=== PATIENT | female | born 1965 ===

== ENCOUNTER 2016-08-26 14:50 | Emergency (ER) | payer MEDICAID ==
[2016-08-26 14:51] VITALS: BMI 19.3
[2016-08-26] MEDS ORDERED: Sodium Chloride 0.9% 1,000 ML IV ONE (15:29)
--- NOTE | 2016-08-26 15:29 | C.PDOC ---
History Of Present Illness 51 y/o female presents to the ED with complaints of headache, bilateral ear fullness and leg pain for 3 days. Patient also reports malaise, fatigue and SOB. Denies fever, cough, chest pain, dizziness, numbness, leg swelling or any other complaints. PMHx CABG 05/2016. Time Seen by Provider: 08/26/16 15:10 Chief Complaint (Nursing): Flu-like Symptoms History Per: Patient, Family History/Exam Limitations: no limitations Onset/Duration Of Symptoms: Days Current Symptoms Are (Timing): Still Present Location Of Pain: Headache Sick Contacts (Context): None Associated Symptoms: denies: Fever, Cough, Vomiting, Diarrhea Ear Symptoms: Bilateral: Ear Fullness Severity: Mild Recent travel outside of the [place]: No Past Medical History Reviewed: Historical Data, Nursing Documentation, Vital Signs Vital Signs: Last Vital Signs Temp 98.4 F 08/26/16 17:28 Pulse 84 08/26/16 17:28 Resp 18 08/26/16 17:28 BP 87/48 L 08/26/16 17:28 Pulse Ox 99 08/26/16 17:28 - Medical History PMH: CAD, HTN, Hypercholesterolemia Surgical History: CABG (X1 05/13/2016), Coronary Stent - [facility] Procedures MEASURE CARDIAC SAMPL & PRESSURE, BILATERAL, PERC (09/27/15) PLAIN RADIOGRAPHY OF R & L HEART USING L OSM CONTRAST (09/27/15) ULTRASONOGRAPHY OF RIGHT AND LEFT HEART, TRANSESOPHAGEAL (09/27/15) Family History: States: Unknown Family Hx - Social History Hx Alcohol Use: No Hx Substance Use: No - Immunization History Hx Tetanus Toxoid Vaccination: No Hx Influenza Vaccination: No Hx Pneumococcal Vaccination: No Review Of Systems Constitutional: Positive for: Weakness, Malaise. Negative for: Fever, Chills ENT: Positive for: Ear Pain (ear fullness) Cardiovascular: Negative for: Chest Pain, Palpitations Respiratory: Negative for: Cough Gastrointestinal: Negative for: Vomiting, Abdominal Pain, Diarrhea Musculoskeletal: Positive for: Leg Pain. Negative for: Back Pain Neurological: Positive for: Headache. Negative for: Weakness, Numbness, Dizziness Physical Exam - Physical Exam Appears: Non-toxic, No Acute Distress Skin: Warm, Dry, No Rash Head: Atraumatic, Normacephalic Eye(s): bilateral: Normal Inspection, EOMI Ear(s): Bilateral: TM Dull (no erythema) Nose: Normal Oral Mucosa: Moist Throat: Normal, No Erythema Neck: Normal ROM, Supple Chest: Symmetrical, Other (midsternal chest scar) Cardiovascular: Rhythm Regular (tachycardic), No Murmur Respiratory: Normal Breath Sounds, No Rales, No Rhonchi, No Wheezing Gastrointestinal/Abdominal: Soft, No Tenderness, No Distention, No Guarding Extremity: Normal ROM, Tenderness (diffuse non-focal tenderness to left lower leg), No Pedal Edema, No Calf Tenderness, No Swelling Pulses: Left Dorsalis Pedis: Normal, Right Dorsalis Pedis: Normal Neurological/Psych: Oriented x3, Normal Speech, Normal Motor, Normal Sensation ED Course And Treatment - Laboratory Results Result Diagrams: 08/26/16 16:20 08/26/16 16:20 ECG: Viewed By Me ECG Rhythm: Sinus Tachycardia Interpretation Of ECG: T wave abnormality (interpreted by Dr Cheatham) Rate From EC (BPM) O2 Sat by Pulse Oximetry: 98 (on room air) Pulse Ox Interpretation: Normal - Other Rad CXR X-Ray: Viewed By Me, Read By Radiologist (Fahad Rayo MD) Interpretation: Creator : Fahad Rayo MD. Report Date : 08/26/2016 16:05 :25. My Comment : . HISTORY: sob. COMPARISON: Comparison chest dated . TECHNIQUE: Chest PA and lateral. FINDINGS: LUNGS: There appears be some minor linear scarring changes in both lung bases. PLEURA: No significant pleural effusion identified. No pneumothorax apparent. CARDIOVASCULAR: Interval sternotomy and CABG surgery. OSSEOUS STRUCTURES: No significant abnormalities. VISUALIZED UPPER ABDOMEN: Normal. OTHER FINDINGS: None. IMPRESSION: Suspect minimal linear scarring changes both lung bases. Interval sternotomy and CABG surgery. . Medical Decision Making Medical Decision Making: Plan: * EKG, CXR * labs * UA * IV fluids Prior records reviewed and patient was recently seen 08/12/16 at [place] for chest pain and was admitted for 3 days Labs reviewed with no acute changes. UA shows UTI and Influenza A positive. Patient remained afebrile alert and oriented with stable vital signs during ER evaluation. Discussed results with patient, and she feels comfortable going home and will be discharged. Patient given follow up instructions. Instructed to return to ER if symptoms worsen or new symptoms arise. Disposition Counseled Patient/Family Regarding: Diagnosis, Need For Followup, Rx Given - Disposition Disposition: HOME/ ROUTINE Disposition Time: 17:11 Condition: IMPROVED Additional Instructions: Your labs show you have Flu A and Urine infection Take Tylenol or Motrin alternating every 4-6 hours for Fever 100.4F or higher. Take Tamiflu twice daily for 5 days and Macrobid twice daily for one week Rest and drink plenty of fluids. May use cool mist humidifier or vaporizer in room. 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 - Scribe Statement The provider has reviewed the documentation as recorded by the Scribe Roberto Connelly All medical record entries made by the Scribe were at my direction and personally dictated by me. I have reviewed the chart and agree that the record accurately reflects my personal performance of the history, physical exam, medical decision making, and the department course for this patient. I have also personally directed, reviewed, and agree with the discharge instructions and disposition.
--- NOTE | 2016-08-26 16:07 | RAD ---
HISTORY: sob COMPARISON: Comparison chest dated 09/27/2015 TECHNIQUE: Chest PA and lateral FINDINGS: LUNGS: There appears be some minor linear scarring changes in both lung bases. PLEURA: No significant pleural effusion identified. No pneumothorax apparent. CARDIOVASCULAR: Interval sternotomy and CABG surgery. OSSEOUS STRUCTURES: No significant abnormalities. VISUALIZED UPPER ABDOMEN: Normal. OTHER FINDINGS: None. IMPRESSION: Suspect minimal linear scarring changes both lung bases. Interval sternotomy and CABG surgery. .
[2016-08-26 16:30] LABS: BASO % 0.4 % (0.0-2.0); EOS % 0.3 % (0.0-4.0); LYMPH # 0.8 K/uL (1.0-4.3); LYMPH % 12.1 % (20.0-40.0); MEAN CORPUSCULAR HEMOGLOBIN 28.6 pg (27.0-31.0); MEAN PLATELET VOLUME 8.5 fL (7.2-11.7); MONO # 0.1 K/uL (0.0-0.8); MONO % 0.9 % (0.0-10.0); NRBC % 0.1 % (0.0-2.0); RED CELL DISTRIBUTION WIDTH 15.8 % (11.5-14.5); WHITE BLOOD COUNT 6.8 K/uL (4.8-10.8)
[2016-08-26 16:34] LABS: MEAN CELL VOLUME 86.6 fL (81.0-99.0)
[2016-08-26 16:38] LABS: CHLORIDE 91 mmol/L (98-107); POTASSIUM 3.8 mmol/L (3.6-5.2); SODIUM 130 mmol/L (132-148)
[2016-08-26 16:39] LABS: INR 1.2
[2016-08-26 16:40] LABS: AST/SGOT 147 U/L (14-36); BILIRUBIN,TOTAL 0.8 mg/dL (0.2-1.3); BLOOD UREA NITROGEN 16 mg/dL (7-17); CARBON DIOXIDE 23 mmol/L (22-30); GFR AFRICAN-AMERICAN > 60; TOTAL PROTEIN 8.1 g/dL (6.3-8.3)
[2016-08-26 16:41] LABS: ALKALINE PHOSPHATASE 74 U/L (38-126); ALT/SGPT 59 U/L (9-52); CALCIUM 8.7 mg/dl (8.6-10.4); GLUCOSE,RANDOM 110 mg/dL (65-105)
[2016-08-26 16:45] LABS: RBC URINE 3 /hpf (0-3); TRANSITIONAL EPITHIAL 1 /hpf (0-3); URINE BACTERIA OCC (<OCC); URINE BILIRUBIN NEGATIVE (NEGATIVE); URINE BLOOD NEGATIVE (NEGATIVE); URINE COLOR Amber (YELLOW); URINE GLUCOSE (UA) NORMAL (Normal); URINE KETONE TRACE mg/dL (NEGATIVE); URINE LEUKOCYTE ESTERASE 3+ Leu/uL (Negative); URINE PROTEIN 1+ mg/dL (NEGATIVE); URINE UROBILINOGEN NORMAL mg/dL (0.2-1.0); WBC URINE 21 /hpf (0-5)
[2016-08-26 17:30] VITALS: BP 87/48; PULSE 84; RESP 18; TEMP 98.4
[2016-08-26 19:00] VITALS: O2SAT 98
--- NOTE | 2016-08-28 15:03 | CARD ---
APPROVED REPORT EKG Measurement Heart [id number] <Conclusion> Sinus tachycardia T wave abnormality, consider anterolateral ischemia Abnormal ECG
== END 2016-08-26 17:40 | disposition home or self-care (01) ==
LOC: C.ER 14:50
DX: J11.1 Influenza due to unidentified influenza virus with other respiratory manifestations (principal); N39.0 Urinary tract infection, site not specified
CPT/HCPCS: 71020; 80053; 81001; 84484; 85025; 85610; 85730; 87804; 93005; 96360; 99284; J7040

== ENCOUNTER 2016-08-30 04:46 | Inpatient (IN) | payer MEDICAID ==
[2016-08-30 04:46] VITALS: BMI 19.3
[2016-08-30] MEDS ORDERED: Sodium Chloride 0.9% 1,000 ML IV ONE ×2 (05:16→07:46)
[2016-08-30 05:26] LABS: BASO % 0.1 % (0.0-2.0); EOS # 0.1 K/uL (0.0-0.7); EOS % 0.9 % (0.0-4.0); HEMATOCRIT 40.3 % (34.0-47.0); LYMPH # 1.2 K/uL (1.0-4.3); LYMPH % 9.3 % (20.0-40.0); MEAN CELL VOLUME 87.2 fL (81.0-99.0); MEAN CORPUSCULAR HEMOGLOBIN 28.7 pg (27.0-31.0); MEAN PLATELET VOLUME 10.6 fL (7.2-11.7); MONO # 0.2 K/uL (0.0-0.8); MONO % 1.7 % (0.0-10.0); PLATELET COUNT 111 K/uL (130-400); RED CELL DISTRIBUTION WIDTH 16.4 % (11.5-14.5); WHITE BLOOD COUNT 12.4 K/uL (4.8-10.8)
[2016-08-30] MEDS ORDERED: Sodium Chloride 0.9% 1,000 ML ONE (05:29)
[2016-08-30 05:38] LABS: POTASSIUM 4.3 mmol/L (3.6-5.2)
[2016-08-30 05:40] LABS: ALB/GLOB RATIO 0.8 (1.0-2.1); TOTAL PROTEIN 7.3 g/dL (6.3-8.3)
[2016-08-30 05:41] LABS: CALCIUM 8.4 mg/dl (8.6-10.4)
[2016-08-30 06:27] LABS: NEUTROPHIL 87 % (50-75); REACTIVE LYMPHOCYTES 3 % (0-0); TOTAL CELLS COUNTED 100
--- NOTE | 2016-08-30 06:27 | C.PDOC ---
History Of Present Illness 51 y/o female presents to ED with complaints of abdominal pain, diarrhea, and vomiting for 1 week. Patient states she saw her PMD yesterday who prescribed abx and Tamiflu, but patient notes that vomiting and diarrhea persisted. Patient also reports subjective fever and generalized weakness. Denies cough, URI symptoms, urinary symptoms, chest pain, SOB, or any other complaints. Time Seen by Provider: 08/30/16 05:09 Chief Complaint (Nursing): Abdominal Pain History Per: Patient History/Exam Limitations: no limitations Onset/Duration Of Symptoms: Days Current Symptoms Are (Timing): Still Present Location Of Pain/Discomfort: Diffuse Radiation Of Pain To:: None Quality Of Discomfort: "Pain" Associated Symptoms: Fever (subjective), Vomiting, Diarrhea. denies: Back Pain , Urinary Symptoms Recent travel outside of the [place]: No Past Medical History Reviewed: Historical Data, Nursing Documentation, Vital Signs Vital Signs: Last Vital Signs Temp 97.8 F 08/30/16 04:59 Pulse 82 08/30/16 04:59 Resp 18 08/30/16 04:59 BP 99/67 L 08/30/16 04:59 Pulse Ox 97 08/30/16 06:27 - Medical History PMH: CAD, HTN, Hypercholesterolemia Surgical History: CABG (X1 05/13/2016), Coronary Stent - [facility] Procedures MEASURE CARDIAC SAMPL & PRESSURE, BILATERAL, PERC (09/27/15) PLAIN RADIOGRAPHY OF R & L HEART USING L OSM CONTRAST (09/27/15) ULTRASONOGRAPHY OF RIGHT AND LEFT HEART, TRANSESOPHAGEAL (09/27/15) Family History: States: Unknown Family Hx - Social History Hx Alcohol Use: No Hx Substance Use: No - Immunization History Hx Tetanus Toxoid Vaccination: No Hx Influenza Vaccination: No Hx Pneumococcal Vaccination: No Review Of Systems Except As Marked, All Systems Reviewed And Found Negative. Constitutional: Positive for: Fever (subjective), Malaise. Negative for: Chills Cardiovascular: Negative for: Chest Pain Respiratory: Negative for: Cough, Shortness of Breath Gastrointestinal: Positive for: Vomiting, Abdominal Pain, Diarrhea Skin: Negative for: Rash Neurological: Negative for: Headache, Dizziness Physical Exam - Physical Exam Appears: Non-toxic, No Acute Distress Skin: Normal Color, Warm, Dry Head: Atraumatic, Normacephalic Oral Mucosa: Moist Chest: Symmetrical Cardiovascular: Rhythm Regular, No Murmur Respiratory: Normal Breath Sounds, No Rales, No Rhonchi, No Wheezing Gastrointestinal/Abdominal: Soft, Tenderness (periumbilical and epigastric tenderness), No Distention, No Guarding, No Rebound Back: No CVA Tenderness Extremity: Normal ROM, Capillary Refill (< 2 sec. ) Neurological/Psych: Oriented x3, Normal Speech, Normal Cognition ED Course And Treatment - Laboratory Results Result Diagrams: 08/30/16 05:23 08/30/16 05:23 O2 Sat by Pulse Oximetry: 97 (RA) Pulse Ox Interpretation: Normal Progress Note: Treated with Pepcid, Zofran, IVFs. Labs ordered and reviewed. Review of labs shows patient has elevated WBC's. Abdominal CT ordered. 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 - Scribe Statement The provider has reviewed the documentation as recorded by the Erick Wang Provider Scribe Attestation: All medical record entries made by the Inocenteibjulian were at my direction and personally dictated by me. I have reviewed the chart and agree that the record accurately reflects my personal performance of the history, physical exam, medical decision making, and the department course for this patient. I have also personally directed, reviewed, and agree with the discharge instructions and disposition. Physician Patient Turnover Patient Signed Over To: Lydia Leong Handoff Comments: Pending Abd/ Pelvis CT results
[2016-08-30] MEDS ORDERED: Iohexol 240 (50 ml) ONE (06:39)
[2016-08-30] MEDS ORDERED: Iohexol 240 (50 ml) PO ONE (06:49)
[2016-08-30 07:19] LABS: RBC URINE 12 /hpf (0-3); URINE BACTERIA RARE (<OCC); URINE BILIRUBIN NEGATIVE (NEGATIVE); URINE BLOOD 1+ (NEGATIVE); URINE COLOR Amber (YELLOW); URINE GLUCOSE (UA) NORMAL (Normal); URINE KETONE NEGATIVE (NEGATIVE); URINE LEUKOCYTE ESTERASE 3+ Leu/uL (Negative); URINE PROTEIN 1+ mg/dL (NEGATIVE); URINE UROBILINOGEN NORMAL mg/dL (0.2-1.0); WBC URINE 49 /hpf (0-5)
--- NOTE | 2016-08-30 10:27 | CT ---
PROCEDURE: CT Abdomen and Pelvis with Oral contrast. HISTORY: diffuse abd pain COMPARISON: None. TECHNIQUE: Contiguous axial images of the abdomen and pelvis. Oral contrast was administered. No IV contrast given. Coronal and Sagittal reformats generated. Radiation dose: Total exam DLP = 348.53 mGy-cm. FINDINGS: LOWER THORAX: There is focal opacity at the right lung base in new compared to the previous CT of the chest dated 09/28/2019 16 May represent atelectasis or pneumonia. The possibility of neoplasm is less likely but not totally excluded. Questionable trace right pleural effusion or trace pleural thickening. LIVER: Mild hepatomegaly without evidence of hepatic steatosis. GALLBLADDER AND BILE DUCTS: Suspicious for small gallstones and/or gallbladder sludge without evidence of acute cholecystitis. The biliary tree is not dilated. PANCREAS: No CT evidence of pancreatitis. The main pancreatic duct is not dilated. SPLEEN: Unremarkable. No splenomegaly. ADRENALS: Unremarkable. KIDNEYS AND URETERS: Unremarkable. No stone or hydronephrosis. BLADDER: Grossly unremarkable. REPRODUCTIVE: Unremarkable. APPENDIX: There is no evidence of appendicitis. BOWEL: There is mild diffuse small bowel dilatation wall thickening seen specially at the mid and upper left abdomen. Mild wall thickening versus incomplete distention of the sigmoid and rectum. No evidence of bowel obstruction. PERITONEUM: Unremarkable. No fluid collection. No free air. LYMPH NODES: Mildly enlarged mesenteric and retroperitoneal lymph nodes are seen. VASCULATURE: Unremarkable. No aortic aneurysm. BONES: No fracture or destructive lesion. Severe degenerative changes at L5-S1. OTHER FINDINGS: None. IMPRESSION: Mild small bowel wall thickening seen in the mid abdomen suspicious for enteritis. Mild wall thickening versus incomplete distention of the sigmoid and rectal wall. The possibility of colitis is not excluded. Suspicious for small gallstones and sludge without evidence of acute cholecystitis. No evidence of pancreatitis or appendicitis. Focal airspace consolidation at the right lung base ,new compared to the previous CT of the chest may represent atelectasis, pneumonia or less likely neoplasm. If clinically warranted 3 months follow-up reassessment of the chest is suggested. Small hiatus hernia. Mildly enlarged mesenteric and retroperitoneal lymph nodes.
[2016-08-30] MEDS ORDERED: Piperacillin/Tazobact 3.375 gm 100 ML IV STA (11:24)
[2016-08-30] MEDS ORDERED: Piperacillin/Tazobact 3.375 gm 100 ML IVPB ONE (12:15)
--- NOTE | 2016-08-30 17:03 | CP.PCM.HP ---
History of Present Illness - History of Present Illness History of Present Illness: 51 years old female patient with past medical history of hypertension hyperlipidemia and CAD post CABG in 2016, patient no presented with complaint of abdominal pain, fever, generalized weakness vomiting diarrhea since last 1 week, patient consulted with PMD and started on antibiotics and Tamiflu still diarrhea and vomiting persisted. No complaint of chest pain, shortness of breath, cough, palpitation. Present on Admission - Present on Admission Any Indicators Present on Admission: No Past Patient History - Past Medical History & Family History Past Medical History?: Yes - Past Social History Smoking Status: Heavy Smoker > 10 Cigarettes Daily - CARDIAC Hx Hypercholesterolemia: Yes Hx Hypertension: Yes - PULMONARY Hx Respiratory Disorders: No - NEUROLOGICAL Hx Neurological Disorder: No - HEENT Hx HEENT Problems: No - RENAL Hx Chronic Kidney Disease: No - ENDOCRINE/METABOLIC Hx Endocrine Disorders: No - HEMATOLOGICAL/ONCOLOGICAL Hx Blood Disorders: No - INTEGUMENTARY Hx Dermatological Problems: No - MUSCULOSKELETAL/RHEUMATOLOGICAL Hx Musculoskeletal Disorders: No Hx Falls: No - GASTROINTESTINAL Hx Gastrointestinal Disorders: Yes Hx Gastroesophageal Reflux: Yes Other/Comment: gastric reflux - GENITOURINARY/GYNECOLOGICAL Hx Genitourinary Disorders: No - PSYCHIATRIC Hx Substance Use: No - SURGICAL HISTORY Hx Coronary Artery Bypass Graft: Yes (X1 05/13/2016) Hx Coronary Stent: Yes - ANESTHESIA Hx Anesthesia: Yes Hx Anesthesia Reactions: No Hx Malignant Hyperthermia: No Meds Allergies/Adverse Reactions: Allergies Allergy/AdvReac Type Severity Reaction Status Date / Time ciprofloxacin [From Cipro] Allergy RASH Verified 09/12/16 12:25 ciprofloxacin HCl Allergy RASH Verified 09/12/16 12:25 [From Cipro] iodine Allergy SWELLING Verified 09/12/16 12:25 Physical Exam - Constitutional Appears: Well - Head Exam Head Exam: ATRAUMATIC, NORMAL INSPECTION, NORMOCEPHALIC - Eye Exam Eye Exam: EOMI, Normal appearance, PERRL Pupil Exam: NORMAL ACCOMODATION, PERRL - ENT Exam ENT Exam: Mucous Membranes Moist, Normal Exam - Neck Exam Neck exam: Positive for: Normal Inspection - Respiratory Exam Respiratory Exam: Decreased Breath Sounds - Cardiovascular Exam Cardiovascular Exam: REGULAR RHYTHM, +S1, +S2 - GI/Abdominal Exam GI & Abdominal Exam: Diminished Bowel Sounds, Hyperactive Bowel Sounds, Soft - Rectal Exam Rectal Exam: Deferred Results - Vital Signs Recent Vital Signs: Last Vital Signs Temp 100.2 F H 08/30/16 16:05 Pulse 135 H 08/30/16 16:05 Resp 20 08/30/16 16:05 BP 116/71 08/30/16 16:05 Pulse Ox 98 08/30/16 16:05 - Labs Result Diagrams: 09/03/16 13:56 09/04/16 07:30 Assessment & Plan (1) Abdominal pain Status: Acute (2) Acute chest pain Status: Acute (3) Chest pain Status: Acute (4) Hyperlipidemia Status: Acute (5) Hypertension Status: Acute (6) Influenza Status: Acute (7) Neuropathy Status: Acute (8) UTI (urinary tract infection) Status: Acute (9) Vasculitis Status: Acute (10) Anxiety Status: Chronic - Assessment and Plan (Free Text) Plan: cefepime protonix lovenox flagyl gi consult stool workup ivf as needed encourage po feeding conit as ordered
[2016-08-30] MEDS ORDERED: Apap-Butalbital-Caffeine 325-50-40mg Tab PO PRN (18:05)
[2016-08-30] MEDS ORDERED: Moxifloxacin IV 400mg/250ml NS 250 ML IVPB SCH (18:15)
[2016-08-30] MEDS: Moxifloxacin IV 400mg/250ml NS 250 ML IVPB SCH (20:15)
[2016-08-30] MEDS: metroNIDAZOLE IV 500 mg/100 ml 100 ML IVPB SCH (21:43)
[2016-08-31] MEDS: metroNIDAZOLE IV 500 mg/100 ml 100 ML IVPB SCH ×3 (05:55→22:03)
--- NOTE | 2016-08-31 09:14 | CP.PCM.CON ---
<Gill Coker - Last Filed: 08/31/16 10:21> History of Present Illness - History of Present Illness History of Present Illness: Gastroenterology Fellow/PGY4 Consult Note 51 year old female with history of Hypertension, Hyperlipidemia, sCHF EF 35-40% with grade I diastolic dysfunction, CAD 09/2015 with medical management s/p CABG 05/2016 on Aspirin/Plavix presenting with diarrhea and vomiting. recent ER visit 08/26 for weakness and completion of Tamiflu for Influenza A and Nitrofurantoin for UTI. Patient notes persistent weakness, body aches, chills, and loss of appetite. She notes constant epigastric pain described as a pressure -like sensation worse with movement and palpation, pain scale 8/10. She notes diarrhea and bilious vomiting with solid and liquid intake since ER presentation on 08/26. Notes sick contacts with grandchildren two days ago but she already had her symptoms. She denies weight loss, nausea, indigestion, heartburn, acid reflux, bloating, melena, hematochezia, hematemesis, or constipation. EGD endorsed to have Gastritis two years ago. No prior colonoscopy. Hiurnf-Oqoeve-[id number] cancer diagnosed at 54 years of age Social-denies tobacco, alcohol, illicit drug use Surgery-none Review of Systems - Review of Systems Review of Systems: A 12-point review of systems negative except for as above Past Patient History - Past Medical History & Family History Past Medical History?: Yes - Past Social History Smoking Status: Heavy Smoker > 10 Cigarettes Daily - CARDIAC Hx Hypercholesterolemia: Yes Hx Hypertension: Yes - PULMONARY Hx Respiratory Disorders: No - NEUROLOGICAL Hx Neurological Disorder: No - HEENT Hx HEENT Problems: No - RENAL Hx Chronic Kidney Disease: No - ENDOCRINE/METABOLIC Hx Endocrine Disorders: No - HEMATOLOGICAL/ONCOLOGICAL Hx Blood Disorders: No - INTEGUMENTARY Hx Dermatological Problems: No - MUSCULOSKELETAL/RHEUMATOLOGICAL Hx Musculoskeletal Disorders: No Hx Falls: No - GASTROINTESTINAL Hx Gastrointestinal Disorders: Yes Hx Gastroesophageal Reflux: Yes Other/Comment: gastric reflux - GENITOURINARY/GYNECOLOGICAL Hx Genitourinary Disorders: No - PSYCHIATRIC Hx Substance Use: No - SURGICAL HISTORY Hx Coronary Artery Bypass Graft: Yes (X1 05/13/2016) Hx Coronary Stent: Yes - ANESTHESIA Hx Anesthesia: Yes Hx Anesthesia Reactions: No Hx Malignant Hyperthermia: No Meds Allergies/Adverse Reactions: Allergies Allergy/AdvReac Type Severity Reaction Status Date / Time ciprofloxacin [From Cipro] Allergy RASH Verified 08/30/16 05:08 ciprofloxacin HCl Allergy RASH Verified 08/30/16 05:08 [From Cipro] iodine Allergy SWELLING Verified 08/30/16 05:08 - Medications Medications: Current Medications Acetaminophen/Butalbital/Caffeine (Fioricet) 1 tab PO Q4H PRN PRN Reason: severe headache Stop: 09/04/16 18:06 Aspirin (Aspirin Chewable) 81 mg PO DAILY [facility] Carvedilol (Coreg) 3.125 mg PO BID [facility] Clopidogrel Bisulfate (Plavix) 75 mg PO DAILY [facility] Metronidazole (Flagyl) 100 mls @ 100 mls/hr IVPB Q8 [facility] Last Admin: 08/31/16 05:55 Dose: 100 mls/hr Cefepime HCl 1 gm/ Dextrose 50 mls @ 100 mls/hr IVPB Q12H [facility] Last Admin: 08/31/16 06:43 Dose: 100 mls/hr Moxifloxacin HCl (Avelox Iv 400mg/250ml Ns) 250 mls @ 167 mls/hr IVPB Q24H [facility] Last Admin: 08/30/16 20:15 Dose: 167 mls/hr Pantoprazole Sodium (Protonix Ec Tab) 40 mg PO DAILY [facility] Rosuvastatin Calcium (Crestor) 10 mg PO HS [facility] Last Admin: 08/30/16 21:43 Dose: 10 mg Physical Exam - Constitutional Appears: Non-toxic, No Acute Distress - Head Exam Head Exam: ATRAUMATIC, NORMOCEPHALIC - Eye Exam Eye Exam: EOMI, PERRL Pupil Exam: PERRL. absent: Miosis, Mydriatic - ENT Exam ENT Exam: Mucous Membranes Moist, Normal Oropharynx - Neck Exam Neck exam: Positive for: Full Rom, Normal Inspection - Respiratory Exam Respiratory Exam: Clear to Auscultation Bilateral. absent: Rales, Rhonchi, Wheezes - Cardiovascular Exam Cardiovascular Exam: RRR, +S1, +S2. absent: Gallop, Rubs - GI/Abdominal Exam GI & Abdominal Exam: Normal Bowel Sounds, Soft, Tenderness. absent: Distended, Guarding, Organomegaly, Rebound, Rigid Additional comments: epigastric and LUQ tenderness to palpation - Extremities Exam Extremities exam: Positive for: full ROM. Negative for: pedal edema - Neurological Exam Neurological exam: Alert - Psychiatric Exam Psychiatric exam: Normal Affect, Normal Mood - Skin Skin Exam: Dry, Intact, Normal Color, Warm Results - Vital Signs Recent Vital Signs: Last Vital Signs Temp 98.6 F 08/31/16 07:00 Pulse 109 H 08/31/16 07:00 Resp 18 08/31/16 07:00 BP 99/58 L 08/31/16 07:00 Pulse Ox 96 08/31/16 07:00 - Labs Result Diagrams: 08/30/16 05:23 08/30/16 05:23 Assessment & Plan - Assessment and Plan (Free Text) Assessment: 51 year old female with history of Hypertension, Hyperlipidemia, sCHF EF 35-40% with grade I diastolic dysfunction, CAD 09/2015 with medical management s/p CABG 05/2016 on Aspirin/Plavix presenting with diarrhea and vomiting. Recent antibiotics for Influenza A and UTI 08/26/16. Active treatment of UTI, renal insufficiency, enteritis on CT A/P and concern for Right lower lung opacity in setting of recent Influenza A treatment. EGD endorsed to have Gastritis two years ago. No prior colonoscopy. Plan: >obtain Cdiff, stool culture, fecal leukocytes >continue cefepime and Flagyl >pending Blood, urine, sputum cultures >supportive care: PPI, IVFs, pain control, antiemetics >clear liquid diet, advance as tolerated >further recommendations based on clinical course <Carlos Jones - Last Filed: 08/31/16 12:12> Meds - Medications Medications: Current Medications Acetaminophen/Butalbital/Caffeine (Fioricet) 1 tab PO Q4H PRN PRN Reason: severe headache Stop: 09/04/16 18:06 Aspirin (Aspirin Chewable) 81 mg PO DAILY [facility] Last Admin: 08/31/16 10:34 Dose: 81 mg Carvedilol (Coreg) 3.125 mg PO BID [facility] Last Admin: 08/31/16 10:34 Dose: Not Given Clopidogrel Bisulfate (Plavix) 75 mg PO DAILY [facility] Last Admin: 08/31/16 10:34 Dose: 75 mg Metronidazole (Flagyl) 100 mls @ 100 mls/hr IVPB Q8 [facility] Last Admin: 08/31/16 05:55 Dose: 100 mls/hr Moxifloxacin HCl (Avelox Iv 400mg/250ml Ns) 250 mls @ 167 mls/hr IVPB Q24H [facility] Last Admin: 08/30/16 20:15 Dose: 167 mls/hr Dextrose/Sodium Chloride (Dextrose 5%/0.45% Ns 1000 Ml) 1,000 mls @ 40 mls/hr IV .Q24H [facility] Last Admin: 08/31/16 11:04 Dose: 40 mls/hr Cefepime HCl 1 gm/ Sodium (Chloride) 100 mls @ 200 mls/hr IVPB Q12H [facility] Pantoprazole Sodium (Protonix Ec Tab) 40 mg PO DAILY [facility] Last Admin: 08/31/16 10:34 Dose: 40 mg Rosuvastatin Calcium (Crestor) 10 mg PO HS [facility] Last Admin: 08/30/16 21:43 Dose: 10 mg Results - Vital Signs Recent Vital Signs: Last Vital Signs Temp 98.6 F 08/31/16 07:00 Pulse 109 H 08/31/16 07:00 Resp 18 08/31/16 07:00 BP 99/58 L 08/31/16 07:00 Pulse Ox 96 08/31/16 07:00 - Labs Result Diagrams: 08/30/16 05:23 08/31/16 11:31 Labs: Laboratory Results - last 24 hr 08/31/16 11:31 Sodium 128 L Potassium 3.7 Chloride 98 Carbon Dioxide 21 L Anion Gap 13 BUN 17 Creatinine 0.8 Est GFR ( Amer) > 60 Est GFR (Non-Af Amer) > 60 Random Glucose 90 Calcium 7.3 L Total Bilirubin 0.7 AST 457 H D ALT 90 H D Alkaline Phosphatase 68 Total Protein 6.0 L Albumin 2.5 L D Globulin 3.5 Albumin/Globulin Ratio 0.7 L Attending/Attestation - Attestation I have personally seen and examined this patient.: Yes I have fully participated in the care of the patient.: Yes I have reviewed all pertinent clinical information: Yes Notes (Text): 08/31/16 12:03 I have seen and examined patient with GI fellow. Agree with above documentation with the following additions. In brief, this is a 51 year old female with history of HTN, hyperlipidemia, CAD/CABG on plavix, CHF who presents to hospital with complaint of vomiting and diarrhea. Her symptoms began 5 days ago, prior to this she was being treated for the flu. She describes 2-3 episodes of loose watery, non-bloody diarrhea along with non- bloody emesis. She also endorses generalized 8/10 intensity abdominal pain which is non-radiating and worse with meal consumption. She denies travel, she does note that her grandchildren were sick a few days prior however her symptoms had already started. She otherwise denies fever/chills, weight loss, rectal bleeding. She had an EGD 2 years ago which showed gastritis as per patient, no prior colonoscopy. HTN / hyperlipidemia CAD/CABG, CHF Abdominal pain, nausea, vomiting, diarrhea UTI CT imaging reviewed by me showing cholelithiasis/GB sludge, mesenteric/ retroperitoneal adenopathy, mild focal wall thickening in mid small bowel, sigmoid, rectum - Liquid diet as tolerated - Obtain stool studies - Continue with antibiotic therapy, obtain urine culture. Follow up blood cultures. - Symptoms suggestive of gastroenteritis, continue with supportive management for time being - Patient would benefit from elective outpatient age appropriate screening colonoscopy 6-8 weeks following resolution of colitis
[2016-08-31] MEDS ORDERED: Enoxaparin 40 mg Syringe SC SCH (10:00)
--- NOTE | 2016-08-31 10:29 | CP.PCM.PN ---
Subjective - Date & Time of Evaluation Date of Evaluation: 08/31/16 Time of Evaluation: 10:40 - Subjective Subjective: clinically same Objective - Vital Signs/Intake and Output Vital Signs (last 24 hours): Temp Pulse Resp BP Pulse Ox 98.6 F 109 H 18 99/58 L 96 08/31/16 07:00 08/31/16 07:00 08/31/16 07:00 08/31/16 07:00 08/31/16 07:00 Intake and Output: 08/31/16 08/31/16 06:59 18:59 Intake Total 590 Balance 590 - Medications Medications: Current Medications Acetaminophen/Butalbital/Caffeine (Fioricet) 1 tab PO Q4H PRN PRN Reason: severe headache Stop: 09/04/16 18:06 Aspirin (Aspirin Chewable) 81 mg PO DAILY [facility] Carvedilol (Coreg) 3.125 mg PO BID [facility] Clopidogrel Bisulfate (Plavix) 75 mg PO DAILY [facility] Metronidazole (Flagyl) 100 mls @ 100 mls/hr IVPB Q8 [facility] Last Admin: 08/31/16 05:55 Dose: 100 mls/hr Cefepime HCl 1 gm/ Dextrose 50 mls @ 100 mls/hr IVPB Q12H [facility] Last Admin: 08/31/16 06:43 Dose: 100 mls/hr Moxifloxacin HCl (Avelox Iv 400mg/250ml Ns) 250 mls @ 167 mls/hr IVPB Q24H [facility] Last Admin: 08/30/16 20:15 Dose: 167 mls/hr Dextrose/Sodium Chloride (Dextrose 5%/0.45% Ns 1000 Ml) 1,000 mls @ 40 mls/hr IV .Q24H [facility] Pantoprazole Sodium (Protonix Ec Tab) 40 mg PO DAILY [facility] Rosuvastatin Calcium (Crestor) 10 mg PO HS [facility] Last Admin: 08/30/16 21:43 Dose: 10 mg - Constitutional Appears: Well - Head Exam Head Exam: ATRAUMATIC, NORMAL INSPECTION, NORMOCEPHALIC - Eye Exam Eye Exam: EOMI, Normal appearance, PERRL Pupil Exam: NORMAL ACCOMODATION, PERRL - ENT Exam ENT Exam: Mucous Membranes Moist, Normal Exam - Neck Exam Neck Exam: Full ROM, Normal Inspection. absent: Lymphadenopathy - Respiratory Exam Respiratory Exam: Decreased Breath Sounds - Cardiovascular Exam Cardiovascular Exam: REGULAR RHYTHM, +S1, +S2 - GI/Abdominal Exam GI & Abdominal Exam: Soft, Diminished Bowel Sounds - Rectal Exam Rectal Exam: Deferred Assessment and Plan (1) Abdominal pain Status: Acute (2) Acute chest pain Status: Acute (3) Chest pain Status: Acute (4) Hyperlipidemia Status: Acute (5) Hypertension Status: Acute (6) Influenza Status: Acute (7) Neuropathy Status: Acute (8) UTI (urinary tract infection) Status: Acute (9) Vasculitis Status: Acute (10) Anxiety Status: Chronic - Assessment and Plan (Free Text) Plan: GI consult continue aspirin Coreg Plavix Continue cefepime, Flagyl IV fluids Diet as tolerated Pain meds
[2016-08-31] MEDS: Pantoprazole 40 mg EC Tab PO SCH (10:34)
[2016-08-31] MEDS: Dextrose 5%/0.45% NS 1,000 ML IV SCH (11:04)
[2016-08-31 11:43] LABS: EOS # 0.1 K/uL (0.0-0.7); MONO # 0.2 K/uL (0.0-0.8); WHITE BLOOD COUNT 9.6 K/uL (4.8-10.8)
[2016-08-31 11:52] LABS: BASO % 0.1 % (0.0-2.0); CHLORIDE 98 mmol/L (98-107); EOS % 0.9 % (0.0-4.0); HEMATOCRIT 30.9 % (34.0-47.0); LYMPH % 10.2 % (20.0-40.0); MEAN CORPUSCULAR HEMOGLOBIN 28.6 pg (27.0-31.0); MONO % 2.5 % (0.0-10.0); RED CELL DISTRIBUTION WIDTH 16.3 % (11.5-14.5)
[2016-08-31 11:53] LABS: SODIUM 128 mmol/L (132-148)
[2016-08-31 11:54] LABS: POTASSIUM 3.7 mmol/L (3.6-5.2)
[2016-08-31 11:56] LABS: ALB/GLOB RATIO 0.7 (1.0-2.1); ALKALINE PHOSPHATASE 68 U/L (38-126); ALT/SGPT 90 U/L (9-52); AST/SGOT 457 U/L (14-36); BILIRUBIN,TOTAL 0.7 mg/dL (0.2-1.3); BLOOD UREA NITROGEN 17 mg/dL (7-17); CARBON DIOXIDE 21 mmol/L (22-30); GFR AFRICAN-AMERICAN > 60; GLUCOSE,RANDOM 90 mg/dL (65-105)
[2016-08-31 11:57] LABS: CALCIUM 7.3 mg/dl (8.6-10.4)
[2016-08-31 12:05] LABS: MEAN CELL VOLUME 84.1 fL (81.0-99.0)
[2016-08-31] MEDS: Cefepime 1 GM in Sodium Chloride 0.9% 100 ML IVPB SCH (18:16)
[2016-08-31] MEDS: Moxifloxacin IV 400mg/250ml NS 250 ML IVPB SCH (20:00)
[2016-09-01] MEDS: Cefepime 1 GM in Sodium Chloride 0.9% 100 ML IVPB SCH (05:16)
[2016-09-01] MEDS: metroNIDAZOLE IV 500 mg/100 ml 100 ML IVPB SCH ×3 (05:16→21:25)
--- NOTE | 2016-09-01 08:04 | CP.PCM.PN ---
<John PaulGill - Last Filed: 09/01/16 08:54> Subjective - Date & Time of Evaluation Date of Evaluation: 08/25/16 Time of Evaluation: 08:03 - Subjective Subjective: Gastroenterology Fellow/PGY4 Progress Note Patient notes unchanged epigastric pain, pain scale 8/10. Five episodes of diarrhea with improving frequency from initial presentation. Resolved vomiting. A 12-point review of systems negative except for as above. Objective - Vital Signs/Intake and Output Vital Signs (last 24 hours): Temp Pulse Resp BP Pulse Ox 98 F 94 H 20 91/53 L 97 09/01/16 00:00 09/01/16 00:00 09/01/16 00:00 09/01/16 00:00 09/01/16 00:00 - Medications Medications: Current Medications Acetaminophen/Butalbital/Caffeine (Fioricet) 1 tab PO Q4H PRN PRN Reason: severe headache Stop: 09/04/16 18:06 Aspirin (Aspirin Chewable) 81 mg PO DAILY [facility] Last Admin: 08/31/16 10:34 Dose: 81 mg Carvedilol (Coreg) 3.125 mg PO BID [facility] Last Admin: 08/31/16 18:16 Dose: Not Given Clopidogrel Bisulfate (Plavix) 75 mg PO DAILY [facility] Last Admin: 08/31/16 10:34 Dose: 75 mg Metronidazole (Flagyl) 100 mls @ 100 mls/hr IVPB Q8 [facility] Last Admin: 09/01/16 05:16 Dose: 100 mls/hr Moxifloxacin HCl (Avelox Iv 400mg/250ml Ns) 250 mls @ 167 mls/hr IVPB Q24H [facility] Last Admin: 08/31/16 20:00 Dose: 167 mls/hr Dextrose/Sodium Chloride (Dextrose 5%/0.45% Ns 1000 Ml) 1,000 mls @ 40 mls/hr IV .Q24H [facility] Last Admin: 08/31/16 11:04 Dose: 40 mls/hr Cefepime HCl 1 gm/ Sodium (Chloride) 100 mls @ 200 mls/hr IVPB Q12H [facility] Last Admin: 09/01/16 05:16 Dose: 200 mls/hr Pantoprazole Sodium (Protonix Ec Tab) 40 mg PO DAILY [facility] Last Admin: 08/31/16 10:34 Dose: 40 mg Rosuvastatin Calcium (Crestor) 10 mg PO HS [facility] Last Admin: 08/31/16 22:04 Dose: 10 mg - Constitutional Appears: Non-toxic, No Acute Distress - Head Exam Head Exam: ATRAUMATIC, NORMOCEPHALIC - Eye Exam Eye Exam: EOMI, PERRL Pupil Exam: PERRL. absent: Miosis, Mydriatic - ENT Exam ENT Exam: Mucous Membranes Moist, Normal Oropharynx - Neck Exam Neck Exam: Full ROM, Normal Inspection - Respiratory Exam Respiratory Exam: Clear to Ausculation Bilateral. absent: Rales, Rhonchi, Wheezes - Cardiovascular Exam Cardiovascular Exam: RRR, +S1, +S2. absent: Gallop, Rubs - GI/Abdominal Exam GI & Abdominal Exam: Soft, Tenderness, Normal Bowel Sounds. absent: Distended, Firm, Guarding, Rigid, Mass, Organomegaly Additional comments: epigastric tenderness to palpation - Extremities Exam Extremities Exam: Full ROM. absent: Pedal Edema - Neurological Exam Neurological Exam: Alert, Awake - Psychiatric Exam Psychiatric exam: Normal Affect, Normal Mood - Skin Skin Exam: Dry, Intact, Normal Color, Warm Assessment and Plan - Assessment and Plan (Free Text) Assessment: 51 year old female with history of Hypertension, Hyperlipidemia, sCHF EF 35-40% with grade I diastolic dysfunction, CAD 09/2015 with medical management s/p CABG 05/2016 on Aspirin/Plavix presenting with diarrhea and vomiting. Recent antibiotics for Influenza A and UTI 08/26/16. Active treatment of UTI, renal insufficiency, enteritis on CT A/P and concern for Right lower lung opacity in setting of recent Influenza A treatment. EGD endorsed to have Gastritis two years ago. No prior colonoscopy. Plan: >negative Cdiff, fecal leukocytes >blood culture negative at 24 hours >pending stool culture >on cefepime, moxifloxacin, flagyl >pending urine and sputum cultures >supportive care: PPI, IVFs, pain control, antiemetics >advanced to full liquid diet, advance as tolerated >further recommendations based on clinical course >will benefit from colonoscopy in 6 to 8 weeks after improved colitis <Sol Harman - Last Filed: 09/01/16 11:58> Objective - Vital Signs/Intake and Output Vital Signs (last 24 hours): Temp Pulse Resp BP Pulse Ox 97.4 F L 69 18 93/49 L 96 09/01/16 07:00 09/01/16 07:00 09/01/16 07:00 09/01/16 07:00 09/01/16 07:00 - Medications Medications: Current Medications Acetaminophen/Butalbital/Caffeine (Fioricet) 1 tab PO Q4H PRN PRN Reason: severe headache Stop: 09/04/16 18:06 Aspirin (Aspirin Chewable) 81 mg PO DAILY [facility] Last Admin: 09/01/16 11:10 Dose: 81 mg Carvedilol (Coreg) 3.125 mg PO BID [facility] Last Admin: 09/01/16 11:11 Dose: Not Given Clopidogrel Bisulfate (Plavix) 75 mg PO DAILY [facility] Last Admin: 09/01/16 11:10 Dose: 75 mg Metronidazole (Flagyl) 100 mls @ 100 mls/hr IVPB Q8 [facility] Last Admin: 09/01/16 05:16 Dose: 100 mls/hr Moxifloxacin HCl (Avelox Iv 400mg/250ml Ns) 250 mls @ 167 mls/hr IVPB Q24H [facility] Last Admin: 08/31/16 20:00 Dose: 167 mls/hr Dextrose/Sodium Chloride (Dextrose 5%/0.45% Ns 1000 Ml) 1,000 mls @ 40 mls/hr IV .Q24H [facility] Last Admin: 09/01/16 11:11 Dose: Not Given Cefepime HCl 1 gm/ Sodium (Chloride) 100 mls @ 200 mls/hr IVPB Q12H [facility] Last Admin: 09/01/16 05:16 Dose: 200 mls/hr Pantoprazole Sodium (Protonix Ec Tab) 40 mg PO DAILY [facility] Last Admin: 09/01/16 11:10 Dose: 40 mg Rosuvastatin Calcium (Crestor) 10 mg PO HS [facility] Last Admin: 08/31/16 22:04 Dose: 10 mg - Labs Labs: 09/01/16 08:06 09/01/16 08:06 Attending/Attestation - Attestation I have personally seen and examined this patient.: Yes I have fully participated in the care of the patient.: Yes I have reviewed all pertinent clinical information, including history, physical exam and plan: Yes Notes (Text): Patient seen and examined. Agree with note as documented above with the following additions/exceptions. This is a 51 year old female with history of HTN, HL, CAD s/p CABG 05/2016 on ASA/plavix who presents with complaint of abdominal pain, enteritis on CT. Stool studies thusfar negative. Her diarrhea is improved today, but she still complains of abdominal pain. Her LFTs are increasing (transaminitis), ?drug induced. Would follow up stool studies. Obtain abdominal ultrasound. Monitor LFTs. Continue supportive care with PPI, IVF hydration and antiemetic therapy as needed. Continue liquid diet as tolerated. She would ultimately benefit from colonoscopy after resolution of acute symptoms. 09/01/16 11:53
[2016-09-01 08:15] LABS: BASO % 0.2 % (0.0-2.0); EOS # 0.2 K/uL (0.0-0.7); EOS % 4.5 % (0.0-4.0); HEMATOCRIT 31.2 % (34.0-47.0); LYMPH % 22.8 % (20.0-40.0); MEAN CELL VOLUME 85.4 fL (81.0-99.0); MEAN CORPUSCULAR HEMOGLOBIN 28.2 pg (27.0-31.0); MEAN PLATELET VOLUME 9.8 fL (7.2-11.7); MONO # 0.2 K/uL (0.0-0.8); MONO % 5.1 % (0.0-10.0); NRBC % 0.1 % (0.0-2.0); RED CELL DISTRIBUTION WIDTH 16.2 % (11.5-14.5)
[2016-09-01 08:23] LABS: WHITE BLOOD COUNT 4.6 K/uL (4.8-10.8)
[2016-09-01 08:25] LABS: CHLORIDE 100 mmol/L (98-107); POTASSIUM 3.3 mmol/L (3.6-5.2); SODIUM 134 mmol/L (132-148)
[2016-09-01 08:27] LABS: GFR AFRICAN-AMERICAN > 60
[2016-09-01 08:28] LABS: ALB/GLOB RATIO 0.8 (1.0-2.1); ALKALINE PHOSPHATASE 65 U/L (38-126); ALT/SGPT 92 U/L (9-52); AST/SGOT 556 U/L (14-36); BILIRUBIN,TOTAL 0.5 mg/dL (0.2-1.3); BLOOD UREA NITROGEN 13 mg/dL (7-17); CALCIUM 7.5 mg/dl (8.6-10.4); CARBON DIOXIDE 24 mmol/L (22-30); GLUCOSE,RANDOM 80 mg/dL (65-105); TOTAL PROTEIN 5.5 g/dL (6.3-8.3)
[2016-09-01] MEDS: Pantoprazole 40 mg EC Tab PO SCH (11:10)
[2016-09-01] MEDS: Dextrose 5%/0.45% NS 1,000 ML IV SCH ×2 (11:11→23:35)
--- NOTE | 2016-09-01 14:25 | US ---
Abdominal ultrasound History: Abdominal pain. Abnormal liver enzymes. Comparison: None available. Technique: Real-time sonography was performed through the abdomen. Findings: Liver: 14.1 centimeters in length. Increased echogenicity suggestive for fatty infiltration. Gallbladder: Layering echogenic foci suggestive for sludge versus layering calculi. Normal wall thickness of 1.8 millimeters. Negative sonographic Saldaña's sign. Common bile duct measures 2.9 millimeters, within normal limits. Visualized portions of the pancreas are preserved. Pancreatic tail not well visualized. Spleen measures 9 centimeters in length, within normal limits. Visualized aorta and IVC are preserved. Right kidney: 10.4 x 4.4 x 4.6 centimeters, within normal limits. Left Kidney: 11.3 x 4.9 x 4.7 centimeters, within normal limits. Impression: Fatty infiltration of the liver. Layering sludge and or calculi in the gallbladder without evidence of wall thickening. Negative sonographic Saldaña's sign.
[2016-09-01] MEDS: Cefepime IV 1 gm in Dextrose 50 ML IVPB SCH (17:40)
--- NOTE | 2016-09-01 18:28 | CP.PCM.PN ---
Subjective - Date & Time of Evaluation Date of Evaluation: 09/01/16 Time of Evaluation: 11:00 - Subjective Subjective: clinically same Objective - Vital Signs/Intake and Output Vital Signs (last 24 hours): Temp Pulse Resp BP Pulse Ox 97.7 F 81 20 101/64 96 09/01/16 16:47 09/01/16 16:47 09/01/16 16:47 09/01/16 16:47 09/01/16 16:47 - Medications Medications: Current Medications Acetaminophen/Butalbital/Caffeine (Fioricet) 1 tab PO Q4H PRN PRN Reason: severe headache Stop: 09/04/16 18:06 Aspirin (Aspirin Chewable) 81 mg PO DAILY [facility] Last Admin: 09/01/16 11:10 Dose: 81 mg Carvedilol (Coreg) 3.125 mg PO BID [facility] Last Admin: 09/01/16 17:37 Dose: Not Given Clopidogrel Bisulfate (Plavix) 75 mg PO DAILY [facility] Last Admin: 09/01/16 11:10 Dose: 75 mg Metronidazole (Flagyl) 100 mls @ 100 mls/hr IVPB Q8 [facility] Last Admin: 09/01/16 14:09 Dose: 100 mls/hr Moxifloxacin HCl (Avelox Iv 400mg/250ml Ns) 250 mls @ 167 mls/hr IVPB Q24H [facility] Last Admin: 08/31/16 20:00 Dose: 167 mls/hr Dextrose/Sodium Chloride (Dextrose 5%/0.45% Ns 1000 Ml) 1,000 mls @ 40 mls/hr IV .Q24H [facility] Last Admin: 09/01/16 11:11 Dose: Not Given Cefepime HCl (Maxipime Iv 1 Gm Premix) 50 mls @ 100 mls/hr IVPB Q12H [facility] Last Admin: 09/01/16 17:40 Dose: 100 mls/hr Pantoprazole Sodium (Protonix Ec Tab) 40 mg PO DAILY [facility] Last Admin: 09/01/16 11:10 Dose: 40 mg Rosuvastatin Calcium (Crestor) 10 mg PO HS [facility] Last Admin: 08/31/16 22:04 Dose: 10 mg - Labs Labs: 09/01/16 08:06 09/01/16 08:06 - Constitutional Appears: Well - Head Exam Head Exam: ATRAUMATIC, NORMAL INSPECTION, NORMOCEPHALIC - Eye Exam Eye Exam: EOMI, Normal appearance, PERRL Pupil Exam: NORMAL ACCOMODATION, PERRL - ENT Exam ENT Exam: Mucous Membranes Moist, Normal Exam - Neck Exam Neck Exam: Full ROM, Normal Inspection. absent: Lymphadenopathy - Respiratory Exam Respiratory Exam: Decreased Breath Sounds - Cardiovascular Exam Cardiovascular Exam: REGULAR RHYTHM, +S1, +S2 - GI/Abdominal Exam GI & Abdominal Exam: Soft, Diminished Bowel Sounds - Rectal Exam Rectal Exam: Deferred Assessment and Plan (1) Abdominal pain Status: Acute (2) Acute chest pain Status: Acute (3) Chest pain Status: Acute (4) Hyperlipidemia Status: Acute (5) Hypertension Status: Acute (6) Influenza Status: Acute (7) Neuropathy Status: Acute (8) UTI (urinary tract infection) Status: Acute (9) Vasculitis Status: Acute (10) Anxiety Status: Chronic - Assessment and Plan (Free Text) Plan: Diarrhea and vomiting improving GI on board Continue antibiotics Awaiting culture reports Urine and sputum culture IV fluids
[2016-09-01] MEDS: Moxifloxacin IV 400mg/250ml NS 250 ML IVPB SCH (19:36)
[2016-09-01] MEDS ORDERED: Potassium Chloride 20 mEq ER Tab PO STA (22:52)
[2016-09-02] MEDS: Cefepime IV 1 gm in Dextrose 50 ML IVPB SCH (05:42)
[2016-09-02] MEDS: metroNIDAZOLE IV 500 mg/100 ml 100 ML IVPB SCH ×2 (05:42→14:55)
[2016-09-02 08:16] LABS: CHLORIDE 104 mmol/L (98-107); SODIUM 138 mmol/L (132-148)
[2016-09-02 08:17] LABS: POTASSIUM 3.7 mmol/L (3.6-5.2)
[2016-09-02 08:19] LABS: ALB/GLOB RATIO 0.7 (1.0-2.1); ALKALINE PHOSPHATASE 69 U/L (38-126); ALT/SGPT 100 U/L (9-52); AST/SGOT 603 U/L (14-36); BILIRUBIN,TOTAL 0.6 mg/dL (0.2-1.3); BLOOD UREA NITROGEN 8 mg/dL (7-17); CARBON DIOXIDE 24 mmol/L (22-30); GFR AFRICAN-AMERICAN > 60; TOTAL PROTEIN 5.5 g/dL (6.3-8.3)
[2016-09-02 08:20] LABS: CALCIUM 7.5 mg/dl (8.6-10.4); GLUCOSE,RANDOM 83 mg/dL (65-105)
--- NOTE | 2016-09-02 10:13 | CP.PCM.PN ---
<Gill Coker - Last Filed: 09/02/16 10:35> Subjective - Date & Time of Evaluation Date of Evaluation: 09/02/16 Time of Evaluation: 10:11 - Subjective Subjective: Gastroenterology Fellow/PGY4 Progress Note Patient notes improving epigastric pain, pain scale 4/10. Improving frequency in diarrhea episodes. Tolerating full liquid diet. A 12-point review of systems negative except for as above. Objective - Vital Signs/Intake and Output Vital Signs (last 24 hours): Temp Pulse Resp BP Pulse Ox 98 F 90 20 95/60 L 96 09/02/16 08:18 09/02/16 08:18 09/02/16 08:18 09/02/16 08:18 09/02/16 08:18 Intake and Output: 09/02/16 09/02/16 06:59 18:59 Intake Total 620 Balance 620 - Medications Medications: Current Medications Acetaminophen/Butalbital/Caffeine (Fioricet) 1 tab PO Q4H PRN PRN Reason: severe headache Stop: 09/04/16 18:06 Aspirin (Aspirin Chewable) 81 mg PO DAILY [facility] Last Admin: 09/01/16 11:10 Dose: 81 mg Carvedilol (Coreg) 3.125 mg PO BID [facility] Last Admin: 09/01/16 17:37 Dose: Not Given Clopidogrel Bisulfate (Plavix) 75 mg PO DAILY [facility] Last Admin: 09/01/16 11:10 Dose: 75 mg Metronidazole (Flagyl) 100 mls @ 100 mls/hr IVPB Q8 [facility] Last Admin: 09/02/16 05:42 Dose: 100 mls/hr Moxifloxacin HCl (Avelox Iv 400mg/250ml Ns) 250 mls @ 167 mls/hr IVPB Q24H [facility] Last Admin: 09/01/16 19:36 Dose: 167 mls/hr Dextrose/Sodium Chloride (Dextrose 5%/0.45% Ns 1000 Ml) 1,000 mls @ 40 mls/hr IV .Q24H [facility] Last Admin: 09/01/16 23:35 Dose: 40 mls/hr Cefepime HCl (Maxipime Iv 1 Gm Premix) 50 mls @ 100 mls/hr IVPB Q12H [facility] Last Admin: 09/02/16 05:42 Dose: 100 mls/hr Pantoprazole Sodium (Protonix Ec Tab) 40 mg PO DAILY [facility] Last Admin: 09/01/16 11:10 Dose: 40 mg Rosuvastatin Calcium (Crestor) 10 mg PO HS [facility] Last Admin: 09/01/16 21:26 Dose: 10 mg - Labs Labs: 09/01/16 08:06 09/02/16 08:02 - Constitutional Appears: Non-toxic, No Acute Distress - Head Exam Head Exam: ATRAUMATIC, NORMOCEPHALIC - Eye Exam Eye Exam: EOMI, PERRL Pupil Exam: PERRL. absent: Miosis, Mydriatic - ENT Exam ENT Exam: Mucous Membranes Moist, Normal Oropharynx - Neck Exam Neck Exam: Full ROM, Normal Inspection - Respiratory Exam Respiratory Exam: Clear to Ausculation Bilateral. absent: Rales, Rhonchi, Wheezes - Cardiovascular Exam Cardiovascular Exam: RRR, +S1, +S2. absent: Gallop, Rubs - GI/Abdominal Exam GI & Abdominal Exam: Soft, Tenderness, Normal Bowel Sounds. absent: Distended, Firm, Guarding, Rigid, Organomegaly, Rebound Additional comments: minimal epigastric discomfort - Extremities Exam Extremities Exam: Full ROM. absent: Pedal Edema - Neurological Exam Neurological Exam: Alert, Awake - Psychiatric Exam Psychiatric exam: Normal Affect, Normal Mood - Skin Skin Exam: Dry, Intact, Normal Color, Warm Assessment and Plan - Assessment and Plan (Free Text) Assessment: 51 year old female with history of Hypertension, Hyperlipidemia, sCHF EF 35-40% with grade I diastolic dysfunction, CAD 09/2015 with medical management s/p CABG 05/2016 on Aspirin/Plavix presenting with diarrhea and vomiting. Recent antibiotics for Influenza A and UTI 08/26/16. Active treatment of UTI, renal insufficiency, enteritis on CT A/P and concern for Right lower lung opacity in setting of recent Influenza A treatment. EGD endorsed to have Gastritis two years ago. No prior colonoscopy. Plan: >negative Cdiff, fecal leukocytes >on cefepime, moxifloxacin, flagyl >recommend de-escalation of antibiotics >advance to heart healthy diet >Hepatitis panel negative >U/S with gallbladder sludge/cholelithiasis >no cholecystitis >ordered autoimmune workup-ASMA,AMA, MARIA T, IgG/A/M, LKM, Fe/TIBC >elevated CPK 4898 >will benefit from colonoscopy in 6 to 8 weeks after improved colitis >further recommendations based on clinical course <Carlos Jones Y - Last Filed: 09/02/16 12:59> Objective - Vital Signs/Intake and Output Vital Signs (last 24 hours): Temp Pulse Resp BP Pulse Ox 98 F 90 20 95/60 L 96 09/02/16 08:18 09/02/16 09:00 09/02/16 08:18 09/02/16 08:18 09/02/16 08:18 Intake and Output: 09/02/16 09/02/16 06:59 18:59 Intake Total 620 Balance 620 - Medications Medications: Current Medications Acetaminophen/Butalbital/Caffeine (Fioricet) 1 tab PO Q4H PRN PRN Reason: severe headache Stop: 09/04/16 18:06 Aspirin (Aspirin Chewable) 81 mg PO DAILY [facility] Last Admin: 09/02/16 10:56 Dose: 81 mg Carvedilol (Coreg) 3.125 mg PO BID [facility] Last Admin: 09/02/16 10:56 Dose: 3.125 mg Clopidogrel Bisulfate (Plavix) 75 mg PO DAILY [facility] Last Admin: 09/02/16 10:56 Dose: 75 mg Metronidazole (Flagyl) 100 mls @ 100 mls/hr IVPB Q8 [facility] Last Admin: 09/02/16 05:42 Dose: 100 mls/hr Moxifloxacin HCl (Avelox Iv 400mg/250ml Ns) 250 mls @ 167 mls/hr IVPB Q24H [facility] Last Admin: 09/01/16 19:36 Dose: 167 mls/hr Dextrose/Sodium Chloride (Dextrose 5%/0.45% Ns 1000 Ml) 1,000 mls @ 40 mls/hr IV .Q24H [facility] Last Admin: 09/02/16 10:56 Dose: Not Given Cefepime HCl (Maxipime Iv 1 Gm Premix) 50 mls @ 100 mls/hr IVPB Q12H [facility] Last Admin: 09/02/16 05:42 Dose: 100 mls/hr Pantoprazole Sodium (Protonix Ec Tab) 40 mg PO DAILY [facility] Last Admin: 09/02/16 10:56 Dose: 40 mg Rosuvastatin Calcium (Crestor) 10 mg PO HS [facility] Last Admin: 09/01/16 21:26 Dose: 10 mg - Labs Labs: 09/01/16 08:06 09/02/16 08:02 Attending/Attestation - Attestation I have personally seen and examined this patient.: Yes I have fully participated in the care of the patient.: Yes I have reviewed all pertinent clinical information, including history, physical exam and plan: Yes Notes (Text): 09/02/16 12:52 I have seen and examined patient with GI fellow. No acute events overnight, her abdominal pain has improved and she feels better. She denies nausea, vomiting, fever/chills. Tolerating PO diet without difficulty. HTN / hyperlipidemia CHF CAD/CABG UTI Gastroenteritis, resolved Transaminitis - abdominal US reviewed by me showing fatty liver, gallbladder sludge. Elevated CPK. - Would stop antibiotic therapy, no clinical indication for ongoing medication - Advance diet as tolerated - Obtain autoimmune panel, continue to monitor LFTs (antibiotic induced?, rhabdomyolysis?) - From GI perspective ok to discharge home with subsequent outpatient follow up. She will require monitoring of LFTs and outpatient elective colonoscopy.
[2016-09-02] MEDS: Pantoprazole 40 mg EC Tab PO SCH (10:56)
[2016-09-02] MEDS: Dextrose 5%/0.45% NS 1,000 ML IV SCH ×2 (10:56→23:55)
[2016-09-02 11:44] LABS: IRON 58 ug/dL (37-170)
--- NOTE | 2016-09-02 11:54 | CP.PCM.PN ---
Subjective - Date & Time of Evaluation Date of Evaluation: 09/02/16 Time of Evaluation: 11:20 - Subjective Subjective: clinically same Objective - Vital Signs/Intake and Output Vital Signs (last 24 hours): Temp Pulse Resp BP Pulse Ox 98 F 90 20 95/60 L 96 09/02/16 08:18 09/02/16 09:00 09/02/16 08:18 09/02/16 08:18 09/02/16 08:18 Intake and Output: 09/02/16 09/02/16 06:59 18:59 Intake Total 620 Balance 620 - Medications Medications: Current Medications Acetaminophen/Butalbital/Caffeine (Fioricet) 1 tab PO Q4H PRN PRN Reason: severe headache Stop: 09/04/16 18:06 Aspirin (Aspirin Chewable) 81 mg PO DAILY [facility] Last Admin: 09/02/16 10:56 Dose: 81 mg Carvedilol (Coreg) 3.125 mg PO BID [facility] Last Admin: 09/02/16 10:56 Dose: 3.125 mg Clopidogrel Bisulfate (Plavix) 75 mg PO DAILY [facility] Last Admin: 09/02/16 10:56 Dose: 75 mg Metronidazole (Flagyl) 100 mls @ 100 mls/hr IVPB Q8 [facility] Last Admin: 09/02/16 05:42 Dose: 100 mls/hr Moxifloxacin HCl (Avelox Iv 400mg/250ml Ns) 250 mls @ 167 mls/hr IVPB Q24H [facility] Last Admin: 09/01/16 19:36 Dose: 167 mls/hr Dextrose/Sodium Chloride (Dextrose 5%/0.45% Ns 1000 Ml) 1,000 mls @ 40 mls/hr IV .Q24H [facility] Last Admin: 09/02/16 10:56 Dose: Not Given Cefepime HCl (Maxipime Iv 1 Gm Premix) 50 mls @ 100 mls/hr IVPB Q12H [facility] Last Admin: 09/02/16 05:42 Dose: 100 mls/hr Pantoprazole Sodium (Protonix Ec Tab) 40 mg PO DAILY [facility] Last Admin: 09/02/16 10:56 Dose: 40 mg Rosuvastatin Calcium (Crestor) 10 mg PO HS [facility] Last Admin: 09/01/16 21:26 Dose: 10 mg - Labs Labs: 09/01/16 08:06 09/02/16 08:02 - Constitutional Appears: Well - Head Exam Head Exam: ATRAUMATIC, NORMAL INSPECTION, NORMOCEPHALIC - Eye Exam Eye Exam: EOMI, Normal appearance, PERRL Pupil Exam: NORMAL ACCOMODATION, PERRL - ENT Exam ENT Exam: Mucous Membranes Moist, Normal Exam - Neck Exam Neck Exam: Full ROM, Normal Inspection. absent: Lymphadenopathy - Respiratory Exam Respiratory Exam: Decreased Breath Sounds - Cardiovascular Exam Cardiovascular Exam: REGULAR RHYTHM, +S1, +S2 - GI/Abdominal Exam GI & Abdominal Exam: Soft, Diminished Bowel Sounds - Rectal Exam Rectal Exam: Deferred Assessment and Plan (1) Abdominal pain Status: Acute (2) Acute chest pain Status: Acute (3) Chest pain Status: Acute (4) Hyperlipidemia Status: Acute (5) Hypertension Status: Acute (6) Influenza Status: Acute (7) Neuropathy Status: Acute (8) UTI (urinary tract infection) Status: Acute (9) Vasculitis Status: Acute (10) Anxiety Status: Chronic - Assessment and Plan (Free Text) Plan: Patient clinically improving Tolerating liquid diet Improvement epigastric pain Continue aspirin and Coreg Plavix Flagyl Avelox PPI Statin Encourage p.o. food
[2016-09-03] MEDS: Pantoprazole 40 mg EC Tab PO SCH (09:37)
--- NOTE | 2016-09-03 10:03 | CP.PCM.PN ---
Subjective - Date & Time of Evaluation Date of Evaluation: 09/03/16 Time of Evaluation: 12:00 - Subjective Subjective: clinically same Objective - Vital Signs/Intake and Output Vital Signs (last 24 hours): Temp Pulse Resp BP Pulse Ox 98 F 78 18 111/65 97 09/03/16 08:00 09/03/16 08:00 09/03/16 08:00 09/03/16 08:00 09/03/16 08:00 Intake and Output: 09/03/16 09/03/16 06:59 18:59 Intake Total 970 Balance 970 - Medications Medications: Current Medications Acetaminophen/Butalbital/Caffeine (Fioricet) 1 tab PO Q4H PRN PRN Reason: severe headache Stop: 09/04/16 18:06 Aspirin (Aspirin Chewable) 81 mg PO DAILY [facility] Last Admin: 09/03/16 09:37 Dose: 81 mg Carvedilol (Coreg) 3.125 mg PO BID [facility] Last Admin: 09/03/16 09:37 Dose: 3.125 mg Clopidogrel Bisulfate (Plavix) 75 mg PO DAILY [facility] Last Admin: 09/03/16 09:37 Dose: 75 mg Metronidazole (Flagyl) 100 mls @ 100 mls/hr IVPB Q8 [facility] Last Admin: 09/02/16 14:55 Dose: 100 mls/hr Moxifloxacin HCl (Avelox Iv 400mg/250ml Ns) 250 mls @ 167 mls/hr IVPB Q24H [facility] Last Admin: 09/01/16 19:36 Dose: 167 mls/hr Dextrose/Sodium Chloride (Dextrose 5%/0.45% Ns 1000 Ml) 1,000 mls @ 40 mls/hr IV .Q24H [facility] Last Admin: 09/02/16 23:55 Dose: 40 mls/hr Cefepime HCl (Maxipime Iv 1 Gm Premix) 50 mls @ 100 mls/hr IVPB Q12H [facility] Last Admin: 09/02/16 05:42 Dose: 100 mls/hr Pantoprazole Sodium (Protonix Ec Tab) 40 mg PO DAILY [facility] Last Admin: 09/03/16 09:37 Dose: 40 mg Rosuvastatin Calcium (Crestor) 10 mg PO HS [facility] Last Admin: 09/02/16 21:20 Dose: 10 mg - Labs Labs: 09/01/16 08:06 03/30/17 08:02 - Constitutional Appears: Well - Head Exam Head Exam: ATRAUMATIC, NORMAL INSPECTION, NORMOCEPHALIC - Eye Exam Eye Exam: EOMI, Normal appearance, PERRL Pupil Exam: NORMAL ACCOMODATION, PERRL - ENT Exam ENT Exam: Mucous Membranes Moist, Normal Exam - Neck Exam Neck Exam: Full ROM, Normal Inspection. absent: Lymphadenopathy - Respiratory Exam Respiratory Exam: Decreased Breath Sounds - Cardiovascular Exam Cardiovascular Exam: REGULAR RHYTHM, +S1, +S2 - GI/Abdominal Exam GI & Abdominal Exam: Soft, Diminished Bowel Sounds - Rectal Exam Rectal Exam: Deferred Assessment and Plan (1) Abdominal pain Status: Acute (2) Acute chest pain Status: Acute (3) Chest pain Status: Acute (4) Hyperlipidemia Status: Acute (5) Hypertension Status: Acute (6) Influenza Status: Acute (7) Neuropathy Status: Acute (8) UTI (urinary tract infection) Status: Acute (9) Vasculitis Status: Acute (10) Anxiety Status: Chronic - Assessment and Plan (Free Text) Plan: Patient feeling better Tolerating diet EKG showed cholelithiasis Follow-up colonoscopy GI on board Continue aspirin and Coreg Plavix Antibiotics
--- NOTE | 2016-09-03 12:01 | CP.PCM.PN ---
<Gill Coker - Last Filed: 09/03/16 11:58> Subjective - Date & Time of Evaluation Date of Evaluation: 09/03/16 Time of Evaluation: 11:59 - Subjective Subjective: Gastroenterology Fellow/PGY4 Progress Note Patient notes resolved epigastric pain, pain scale 0/10. Notes only one episode of diarrhea overnight. Tolerating regular diet. A 12-point review of systems negative except for as above. Objective - Vital Signs/Intake and Output Vital Signs (last 24 hours): Temp Pulse Resp BP Pulse Ox 98 F 78 18 111/65 97 09/03/16 08:00 09/03/16 08:00 09/03/16 08:00 09/03/16 08:00 09/03/16 08:00 Intake and Output: 09/03/16 09/03/16 06:59 18:59 Intake Total 970 Balance 970 - Medications Medications: Current Medications Acetaminophen/Butalbital/Caffeine (Fioricet) 1 tab PO Q4H PRN PRN Reason: severe headache Stop: 09/04/16 18:06 Aspirin (Aspirin Chewable) 81 mg PO DAILY [facility] Last Admin: 09/03/16 09:37 Dose: 81 mg Carvedilol (Coreg) 3.125 mg PO BID [facility] Last Admin: 09/03/16 09:37 Dose: 3.125 mg Clopidogrel Bisulfate (Plavix) 75 mg PO DAILY [facility] Last Admin: 09/03/16 09:37 Dose: 75 mg Metronidazole (Flagyl) 100 mls @ 100 mls/hr IVPB Q8 [facility] Last Admin: 09/02/16 14:55 Dose: 100 mls/hr Moxifloxacin HCl (Avelox Iv 400mg/250ml Ns) 250 mls @ 167 mls/hr IVPB Q24H [facility] Last Admin: 09/01/16 19:36 Dose: 167 mls/hr Cefepime HCl (Maxipime Iv 1 Gm Premix) 50 mls @ 100 mls/hr IVPB Q12H [facility] Last Admin: 09/02/16 05:42 Dose: 100 mls/hr Pantoprazole Sodium (Protonix Ec Tab) 40 mg PO DAILY [facility] Last Admin: 09/03/16 09:37 Dose: 40 mg Rosuvastatin Calcium (Crestor) 10 mg PO HS [facility] Last Admin: 09/02/16 21:20 Dose: 10 mg - Labs Labs: 09/01/16 08:06 09/02/16 08:02 - Constitutional Appears: Non-toxic, No Acute Distress - Head Exam Head Exam: ATRAUMATIC, NORMOCEPHALIC - Eye Exam Eye Exam: EOMI, PERRL Pupil Exam: PERRL. absent: Miosis, Mydriatic - ENT Exam ENT Exam: Mucous Membranes Moist, Normal Oropharynx - Neck Exam Neck Exam: Full ROM, Normal Inspection - Respiratory Exam Respiratory Exam: Clear to Ausculation Bilateral. absent: Rales, Rhonchi, Wheezes - Cardiovascular Exam Cardiovascular Exam: RRR, +S1, +S2. absent: Gallop, Rubs - GI/Abdominal Exam GI & Abdominal Exam: Soft, Normal Bowel Sounds. absent: Distended, Firm, Rigid , Tenderness, Hernia, Mass, Organomegaly, Rebound - Extremities Exam Extremities Exam: Full ROM. absent: Pedal Edema - Neurological Exam Neurological Exam: Alert, Awake - Psychiatric Exam Psychiatric exam: Normal Affect, Normal Mood Assessment and Plan - Assessment and Plan (Free Text) Assessment: 51 year old female with history of Hypertension, Hyperlipidemia, sCHF EF 35-40% with grade I diastolic dysfunction, CAD 09/2015 with medical management s/p CABG 05/2016 on Aspirin/Plavix presenting with diarrhea and vomiting. Recent antibiotics for Influenza A and UTI 08/26/16. Active treatment of UTI, improved renal insufficiency, enteritis on CT A/P and concern for right lower lung opacity in setting of recent Influenza A treatment. EGD endorsed to have Gastritis two years ago. No prior colonoscopy. Plan: >likely gastroenteritis >recommend de-escalation of antibiotics >tolerating heart healthy diet >Hepatitis panel negative >pending autoimmune workup-ASMA,AMA, MARIA T, IgG/A/M, LKM, Fe/TIBC >elevated CPK 4898 >U/S with gallbladder sludge/cholelithiasis, no cholecystitis >will benefit from colonoscopy in 6 to 8 weeks after resolution colitis <Mookie Christian - Last Filed: 09/03/16 13:37> Objective - Vital Signs/Intake and Output Vital Signs (last 24 hours): Temp Pulse Resp BP Pulse Ox 98 F 78 18 111/65 97 09/03/16 08:00 09/03/16 08:00 09/03/16 08:00 09/03/16 08:00 09/03/16 08:00 Intake and Output: 09/03/16 09/03/16 06:59 18:59 Intake Total 970 Balance 970 - Medications Medications: Current Medications Acetaminophen/Butalbital/Caffeine (Fioricet) 1 tab PO Q4H PRN PRN Reason: severe headache Stop: 09/04/16 18:06 Aspirin (Aspirin Chewable) 81 mg PO DAILY [facility] Last Admin: 09/03/16 09:37 Dose: 81 mg Carvedilol (Coreg) 3.125 mg PO BID [facility] Last Admin: 09/03/16 09:37 Dose: 3.125 mg Clopidogrel Bisulfate (Plavix) 75 mg PO DAILY [facility] Last Admin: 09/03/16 09:37 Dose: 75 mg Metronidazole (Flagyl) 100 mls @ 100 mls/hr IVPB Q8 [facility] Last Admin: 09/02/16 14:55 Dose: 100 mls/hr Moxifloxacin HCl (Avelox Iv 400mg/250ml Ns) 250 mls @ 167 mls/hr IVPB Q24H [facility] Last Admin: 09/01/16 19:36 Dose: 167 mls/hr Cefepime HCl (Maxipime Iv 1 Gm Premix) 50 mls @ 100 mls/hr IVPB Q12H [facility] Last Admin: 09/02/16 05:42 Dose: 100 mls/hr Pantoprazole Sodium (Protonix Ec Tab) 40 mg PO DAILY [facility] Last Admin: 09/03/16 09:37 Dose: 40 mg Rosuvastatin Calcium (Crestor) 10 mg PO HS [facility] Last Admin: 09/02/16 21:20 Dose: 10 mg - Labs Labs: 09/01/16 08:06 09/02/16 08:02 Attending/Attestation - Attestation I have personally seen and examined this patient.: Yes I have fully participated in the care of the patient.: Yes I have reviewed all pertinent clinical information, including history, physical exam and plan: Yes Notes (Text): 09/03/16 13:34 51 year old female with h/o HTN, HLD, CHF, CAD/CABG with gastroenteritis and elevated LFTs 1.Gastroenteriti 2. Elevated LFTs Plan: - Advance diet as tolerated - Await autoimmune panel, continue to monitor LFTs (antibiotic induced?, rhabdomyolysis?) - awaiting repeat lfts from today - markedly elevated AST and CK, with relatively mild elevation of ALT, raises the possibility that the AST is from a muscle source, rather than liver, as in rhabdomyolysis - recommend supportive care - trend lfts - negative viral serologies - Us notable for fatty liver and GB sludge, non-dilated bile duct - From GI perspective ok to discharge home with subsequent outpatient follow up. She will require monitoring of LFTs as an outpatient and outpatient elective colonoscopy.
[2016-09-03 14:05] LABS: BASO % 0.6 % (0.0-2.0); EOS # 0.1 K/uL (0.0-0.7); EOS % 2.4 % (0.0-4.0); LYMPH # 1.6 K/uL (1.0-4.3); LYMPH % 32.1 % (20.0-40.0); MEAN CELL VOLUME 86.2 fL (81.0-99.0); MEAN CORPUSCULAR HGB CONC 32.4 g/dL (33.0-37.0); MEAN PLATELET VOLUME 9.2 fL (7.2-11.7); MONO # 0.6 K/uL (0.0-0.8); MONO % 11.3 % (0.0-10.0); NRBC % 0.1 % (0.0-2.0); RED CELL DISTRIBUTION WIDTH 16.8 % (11.5-14.5)
[2016-09-03 14:20] LABS: CHLORIDE 104 mmol/L (98-107); POTASSIUM 2.9 mmol/L (3.6-5.2); SODIUM 138 mmol/L (132-148)
[2016-09-03 14:22] LABS: BILIRUBIN,TOTAL 0.4 mg/dL (0.2-1.3); CARBON DIOXIDE 26 mmol/L (22-30); GFR AFRICAN-AMERICAN > 60
[2016-09-03 14:23] LABS: ALB/GLOB RATIO 0.7 (1.0-2.1); ALKALINE PHOSPHATASE 83 U/L (38-126); ALT/SGPT 121 U/L (9-52); AST/SGOT 556 U/L (14-36); BLOOD UREA NITROGEN 7 mg/dL (7-17); CALCIUM 7.5 mg/dl (8.6-10.4); GLUCOSE,RANDOM 107 mg/dL (65-105); TOTAL PROTEIN 5.7 g/dL (6.3-8.3)
[2016-09-03] MEDS: Dextrose 5%/0.45% NS 1,000 ML IV SCH ×2 (14:45→20:37)
[2016-09-03] MEDS ORDERED: Potassium Chloride 20 mEq 100 ML IVPB SCH (19:00)
[2016-09-03] MEDS: Potassium Chloride 20 mEq ER Tab PO SCH (21:00)
[2016-09-03 23:58] VITALS: RESP 20
[2016-09-04] MEDS: Potassium Chloride 20 mEq ER Tab PO SCH (00:23)
[2016-09-04] MEDS: Dextrose 5%/0.45% NS 1,000 ML IV SCH (06:27)
--- NOTE | 2016-09-04 07:13 | CP.PCM.PN ---
<Gill Coker - Last Filed: 09/04/16 09:27> Subjective - Date & Time of Evaluation Date of Evaluation: 09/04/16 Time of Evaluation: 07:10 - Subjective Subjective: Gastroenterology Fellow/PGY4 Progress Note Patient denies abdominal pain. Notes resolution of diarrhea. Tolerating regular diet. A 12-point review of systems negative except for as above. Objective - Vital Signs/Intake and Output Vital Signs (last 24 hours): Temp Pulse Resp BP Pulse Ox 98.2 F 80 20 103/62 96 09/03/16 23:55 09/03/16 23:55 09/03/16 23:55 09/03/16 23:55 09/03/16 23:55 Intake and Output: 09/04/16 09/04/16 06:59 18:59 Intake Total 640 Balance 640 - Medications Medications: Current Medications Acetaminophen/Butalbital/Caffeine (Fioricet) 1 tab PO Q4H PRN PRN Reason: severe headache Stop: 09/04/16 18:06 Aspirin (Aspirin Chewable) 81 mg PO DAILY [facility] Last Admin: 09/03/16 09:37 Dose: 81 mg Carvedilol (Coreg) 3.125 mg PO BID [facility] Last Admin: 09/03/16 20:35 Dose: 3.125 mg Clopidogrel Bisulfate (Plavix) 75 mg PO DAILY [facility] Last Admin: 09/03/16 09:37 Dose: 75 mg Metronidazole (Flagyl) 100 mls @ 100 mls/hr IVPB Q8 [facility] Last Admin: 09/02/16 14:55 Dose: 100 mls/hr Moxifloxacin HCl (Avelox Iv 400mg/250ml Ns) 250 mls @ 167 mls/hr IVPB Q24H [facility] Last Admin: 09/01/16 19:36 Dose: 167 mls/hr Cefepime HCl (Maxipime Iv 1 Gm Premix) 50 mls @ 100 mls/hr IVPB Q12H [facility] Last Admin: 09/02/16 05:42 Dose: 100 mls/hr Dextrose/Sodium Chloride (Dextrose 5%/0.45% Ns 1000 Ml) 1,000 mls @ 50 mls/hr IV .Q20H [facility] Last Admin: 09/04/16 06:27 Dose: 50 mls/hr Pantoprazole Sodium (Protonix Ec Tab) 40 mg PO DAILY [facility] Last Admin: 09/03/16 09:37 Dose: 40 mg Rosuvastatin Calcium (Crestor) 10 mg PO HS [facility] Last Admin: 09/02/16 21:20 Dose: 10 mg - Labs Labs: 09/03/16 13:56 09/03/16 13:56 - Constitutional Appears: Non-toxic, No Acute Distress - Head Exam Head Exam: ATRAUMATIC, NORMOCEPHALIC - Eye Exam Eye Exam: EOMI, PERRL Pupil Exam: PERRL. absent: Miosis, Mydriatic - ENT Exam ENT Exam: Mucous Membranes Moist, Normal Oropharynx - Neck Exam Neck Exam: Full ROM, Normal Inspection - Respiratory Exam Respiratory Exam: Clear to Ausculation Bilateral. absent: Rales, Rhonchi, Wheezes - Cardiovascular Exam Cardiovascular Exam: RRR, +S1, +S2. absent: Gallop, Rubs - GI/Abdominal Exam GI & Abdominal Exam: Soft, Normal Bowel Sounds. absent: Distended, Firm, Guarding, Rigid, Tenderness, Mass, Organomegaly, Rebound - Extremities Exam Extremities Exam: Full ROM. absent: Pedal Edema - Neurological Exam Neurological Exam: Alert, Awake - Psychiatric Exam Psychiatric exam: Normal Affect, Normal Mood - Skin Skin Exam: Dry, Intact, Normal Color, Warm Assessment and Plan - Assessment and Plan (Free Text) Assessment: 51 year old female with history of Hypertension, Hyperlipidemia, sCHF EF 35-40% with grade I diastolic dysfunction, CAD 09/2015 with medical management s/p CABG 05/2016 on Aspirin/Plavix presenting with diarrhea and vomiting. Recent antibiotics for Influenza A and UTI 08/26/16. Resolved enteritis and renal insufficiency. Active workup of elevated transaminases. EGD endorsed to have Gastritis two years ago. No prior colonoscopy. Plan: >LFTs DDx: rhabdomyolysis, drug-induced >U/S with gallbladder sludge/cholelithiasis, no cholecystitis >MARIA T positive >pending repeat CPK, pending LKM >previous CPK 4898 >Hepatitis panel negative >negative Hepatitis panel, ASMA,AMA, IgG >will benefit from colonoscopy in 6 to 8 weeks after resolution colitis >Thank you for opportunity to participate in the care of this patient. Please contact with questions or concerns. <Carlos Jones Y - Last Filed: 09/04/16 09:37> Objective - Vital Signs/Intake and Output Vital Signs (last 24 hours): Temp Pulse Resp BP Pulse Ox 98.3 F 74 20 121/78 97 09/04/16 07:39 09/04/16 07:55 09/04/16 07:39 09/04/16 07:39 09/04/16 07:39 Intake and Output: 09/04/16 09/04/16 06:59 18:59 Intake Total 640 Balance 640 - Medications Medications: Current Medications Acetaminophen/Butalbital/Caffeine (Fioricet) 1 tab PO Q4H PRN PRN Reason: severe headache Stop: 09/04/16 18:06 Aspirin (Aspirin Chewable) 81 mg PO DAILY [facility] Last Admin: 09/03/16 09:37 Dose: 81 mg Carvedilol (Coreg) 3.125 mg PO BID [facility] Last Admin: 09/03/16 20:35 Dose: 3.125 mg Clopidogrel Bisulfate (Plavix) 75 mg PO DAILY [facility] Last Admin: 09/03/16 09:37 Dose: 75 mg Metronidazole (Flagyl) 100 mls @ 100 mls/hr IVPB Q8 [facility] Last Admin: 09/02/16 14:55 Dose: 100 mls/hr Moxifloxacin HCl (Avelox Iv 400mg/250ml Ns) 250 mls @ 167 mls/hr IVPB Q24H [facility] Last Admin: 09/01/16 19:36 Dose: 167 mls/hr Cefepime HCl (Maxipime Iv 1 Gm Premix) 50 mls @ 100 mls/hr IVPB Q12H [facility] Last Admin: 09/02/16 05:42 Dose: 100 mls/hr Dextrose/Sodium Chloride (Dextrose 5%/0.45% Ns 1000 Ml) 1,000 mls @ 50 mls/hr IV .Q20H [facility] Last Admin: 09/04/16 06:27 Dose: 50 mls/hr Pantoprazole Sodium (Protonix Ec Tab) 40 mg PO DAILY [facility] Last Admin: 09/03/16 09:37 Dose: 40 mg Rosuvastatin Calcium (Crestor) 10 mg PO HS [facility] Last Admin: 09/02/16 21:20 Dose: 10 mg - Labs Labs: 09/03/16 13:56 09/04/16 07:30 Attending/Attestation - Attestation I have personally seen and examined this patient.: Yes I have fully participated in the care of the patient.: Yes I have reviewed all pertinent clinical information, including history, physical exam and plan: Yes Notes (Text): 09/04/16 09:33 I have seen and examined patient with GI fellow. No acute events overnight, she is seen ambulating in hallway, appears quite comfortable. She denies abdominal pain, nausea, vomiting. Tolerating PO diet without difficulty. HTN / hyperlipidemia CHF CAD / CABG Abdominal pain, nausea, vomiting, diarrhea - resolved, likely secondary to gastroenteritis Transaminitis in setting of recent antibiotic use, rhabdomyolysis - Continue with diet as tolerated - LFTs trending down, continue to monitor - Can discontinue antibiotic therapy, no clinical indication at this time - Patient will require outpatient monitoring and further workup of elevated LFTs , MARIA T + and also routine age appropriate screening colonoscopy - From GI standpoint ok to discharge patient home with subsequent outpatient follow up, discussed with Dr. Bowman
[2016-09-04 07:42] VITALS: BP 121/78; PULSE 74; TEMP 98.3; O2SAT 97
[2016-09-04 08:01] LABS: CHLORIDE 104 mmol/L (98-107)
[2016-09-04 08:02] LABS: POTASSIUM 4.1 mmol/L (3.6-5.2); SODIUM 142 mmol/L (132-148)
[2016-09-04 08:04] LABS: ALB/GLOB RATIO 0.7 (1.0-2.1); ALKALINE PHOSPHATASE 79 U/L (38-126); AST/SGOT 412 U/L (14-36); BILIRUBIN,TOTAL 0.4 mg/dL (0.2-1.3); BLOOD UREA NITROGEN 6 mg/dL (7-17); CARBON DIOXIDE 28 mmol/L (22-30); GFR AFRICAN-AMERICAN > 60; TOTAL PROTEIN 5.7 g/dL (6.3-8.3)
[2016-09-04 08:05] LABS: ALT/SGPT 107 U/L (9-52); CALCIUM 7.7 mg/dl (8.6-10.4); GLUCOSE,RANDOM 85 mg/dL (65-105)
[2016-09-04] MEDS: Pantoprazole 40 mg EC Tab PO SCH (10:00)
--- NOTE | 2016-09-04 14:36 | CP.PCM.PN ---
Subjective - Date & Time of Evaluation Date of Evaluation: 09/04/16 Time of Evaluation: 09:40 - Subjective Subjective: clinically same Objective - Vital Signs/Intake and Output Vital Signs (last 24 hours): Temp Pulse Resp BP Pulse Ox 98.3 F 74 20 121/78 97 09/04/16 07:39 09/04/16 07:55 09/04/16 07:39 09/04/16 07:39 09/04/16 07:39 Intake and Output: 09/04/16 09/04/16 06:59 18:59 Intake Total 640 Balance 640 - Medications Medications: Current Medications Acetaminophen/Butalbital/Caffeine (Fioricet) 1 tab PO Q4H PRN PRN Reason: severe headache Stop: 09/04/16 18:06 Aspirin (Aspirin Chewable) 81 mg PO DAILY [facility] Last Admin: 09/04/16 10:00 Dose: 81 mg Carvedilol (Coreg) 3.125 mg PO BID [facility] Last Admin: 09/04/16 10:00 Dose: 3.125 mg Clopidogrel Bisulfate (Plavix) 75 mg PO DAILY [facility] Last Admin: 09/04/16 10:00 Dose: 75 mg Metronidazole (Flagyl) 100 mls @ 100 mls/hr IVPB Q8 [facility] Last Admin: 09/02/16 14:55 Dose: 100 mls/hr Moxifloxacin HCl (Avelox Iv 400mg/250ml Ns) 250 mls @ 167 mls/hr IVPB Q24H [facility] Last Admin: 09/01/16 19:36 Dose: 167 mls/hr Cefepime HCl (Maxipime Iv 1 Gm Premix) 50 mls @ 100 mls/hr IVPB Q12H [facility] Last Admin: 09/02/16 05:42 Dose: 100 mls/hr Dextrose/Sodium Chloride (Dextrose 5%/0.45% Ns 1000 Ml) 1,000 mls @ 50 mls/hr IV .Q20H [facility] Last Admin: 09/04/16 06:27 Dose: 50 mls/hr Pantoprazole Sodium (Protonix Ec Tab) 40 mg PO DAILY [facility] Last Admin: 09/04/16 10:00 Dose: 40 mg Rosuvastatin Calcium (Crestor) 10 mg PO HS [facility] Last Admin: 09/02/16 21:20 Dose: 10 mg - Labs Labs: 09/03/16 13:56 04/01/17 07:30 - Constitutional Appears: Well - Head Exam Head Exam: ATRAUMATIC, NORMAL INSPECTION, NORMOCEPHALIC - Eye Exam Eye Exam: EOMI, Normal appearance, PERRL Pupil Exam: NORMAL ACCOMODATION, PERRL - ENT Exam ENT Exam: Mucous Membranes Moist, Normal Exam - Neck Exam Neck Exam: Full ROM, Normal Inspection. absent: Lymphadenopathy - Respiratory Exam Respiratory Exam: Decreased Breath Sounds - Cardiovascular Exam Cardiovascular Exam: REGULAR RHYTHM, +S1, +S2 - GI/Abdominal Exam GI & Abdominal Exam: Soft, Diminished Bowel Sounds - Rectal Exam Rectal Exam: Deferred Assessment and Plan (1) Abdominal pain Status: Acute (2) Acute chest pain Status: Acute (3) Chest pain Status: Acute (4) Hyperlipidemia Status: Acute (5) Hypertension Status: Acute (6) Influenza Status: Acute (7) Neuropathy Status: Acute (8) UTI (urinary tract infection) Status: Acute (9) Vasculitis Status: Acute (10) Anxiety Status: Chronic - Assessment and Plan (Free Text) Plan: Discharge to home Follow up with Dr. Meeks in 1 week Follow-up labs hold statins Continue aspirin Coreg Plavix Return to the emergency department if symptoms recur
--- NOTE | 2016-09-04 16:52 | CP.PCM.PN ---
Subjective - Date & Time of Evaluation Date of Evaluation: 09/04/16 Time of Evaluation: 11:00 - Subjective Subjective: Alert, awake, no sob or chest pains. Objective - Vital Signs/Intake and Output Vital Signs (last 24 hours): Temp Pulse Resp BP Pulse Ox 98.3 F 74 20 121/78 97 09/04/16 07:39 09/04/16 07:55 09/04/16 07:39 09/04/16 07:39 09/04/16 07:39 Intake and Output: 09/04/16 09/04/16 06:59 18:59 Intake Total 640 Balance 640 - Labs Labs: 09/03/16 13:56 09/04/16 07:30 Assessment and Plan - Assessment and Plan (Free Text) Assessment: Patient is seen and examined. Denies any pain, tolerating diet. Alert and oriented x3, DECREASING CK LEVEL, NAD. Cleared by GI for discharge. D/W DR Georges Bowman, discharge p[dylan for today, advised to follow up with PMD in 1 week. Advised to hold the statin until seen by the MD.
[2016-09-04 23:46] LABS: LKM-1 Ab (IgG) <=20.0 U (<=20.0)
== END 2016-09-04 15:02 | disposition home or self-care (01) ==
LOC: C.ER 04:46 → C.9E 11:22 → C.5T 15:56 → OBSVTOIN 08-31 16:51 → C.5T 09-03 10:23 → C.3T 09-03 10:35
PROVIDERS: ADMIT Internal Medicine Nephrology; ATTEND Internal Medicine Nephrology
DX: K52.9 Noninfective gastroenteritis and colitis, unspecified (principal); I11.0 Hypertensive heart disease with heart failure; I50.9 Heart failure, unspecified; M62.82 Rhabdomyolysis; N39.0 Urinary tract infection, site not specified; K76.0 Fatty (change of) liver, not elsewhere classified; E78.5 Hyperlipidemia, unspecified; E78.00 Pure hypercholesterolemia, unspecified; I25.10 Atherosclerotic heart disease of native coronary artery without angina pectoris; K29.70 Gastritis, unspecified, without bleeding; K44.9 Diaphragmatic hernia without obstruction or gangrene; Z95.1 Presence of aortocoronary bypass graft; Z95.5 Presence of coronary angioplasty implant and graft; K21.9 Gastro-esophageal reflux disease without esophagitis; N28.9 Disorder of kidney and ureter, unspecified; R74.0 Nonspecific elevation of levels of transaminase and lactic acid dehydrogenase [LDH]; K80.20 Calculus of gallbladder without cholecystitis without obstruction; T36.95XA Adverse effect of unspecified systemic antibiotic, initial encounter; Z80.0 Family history of malignant neoplasm of digestive organs; F17.210 Nicotine dependence, cigarettes, uncomplicated